=== PATIENT | female | born 1995 | race Caucasian/White ===

== ENCOUNTER 2025-06-28 10:34 | Outpatient (AMB) | payer OTHER, SELFPAY ==
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
[2025-06-28 10:45] VITALS: BP 114/82; PULSE 103; TEMP 36.9; O2SAT 99; BMI 32.5
--- OUTSIDE RECORDS SUMMARY | 2025-06-28 12:13 | XMS_ITS | Clinical Summary ---
Author Organization [facility] Address [address] [address] Phone Care Team Providers Care Tree Trimmer Helper Name Role Phone Pcp, Unknown Primary Care Provider Unavailabl e Allergies Active Allergy Reactions Criticality Noted Date Comments Sulfamethoxazole-Trimethoprim Rash Low 2024 Medications * This document contains information received from the source organization and may not represent a complete record from that organization. clonazePAM (KLONOPIN) 0.5 MG disintegrating tablet Take 1 tablet (0.5 mg total) by mouth 2 (two) times a day. 30 tablet 06/24/20 25 Active desvenlafaxine succinate (PRISTIQ) 100 MG 24 hr tablet Take 1 tablet (100 mg total) by mouth daily. 15 tablet 06/24/20 25 Active norgestrel (OPILL) Tab tabletIndications: contraception Take 1 tablet (0.075 mg total) by mouth daily. Indications: control 28 tablet 06/24/20 25 Active cetirizine (ZYRTEC) 10 MG tablet Take 1 tablet (10 mg total) by mouth daily. 30 tablet 06/25/20 25 Active clobetasol (TEMOVATE) 0.05 % cream Apply 1 Application topically 2 (two) times a day as needed (Apply to hands as needed for discomfort r/t eczema). 30 g 06/24/20 25 Active docusate sodium (COLACE) 100 MG capsule Take 1 capsule (100 mg total) by mouth 2 (two) times a day. 60 capsule 06/24/20 25 Active bisacodyl (DULCOLAX) 5 mg EC tablet Take 1 tablet (5 mg total) by mouth daily as needed for constipation. 15 tablet 06/24/20 25 Active vitamins with ferrous fumarate- folic acid 28 mg iron- 800 mcg Tab Take 1 tablet by mouth daily. 30 tablet 06/24/20 25 Active omega 4-OUM-JIR-fish oil 60-90-500 mg capsule Take 1 capsule by mouth daily. 30 capsule 06/24/20 25 Active ascorbic acid, vitamin C, (VITAMIN C) 1000 MG tablet Take 1 tablet (1,000 mg total) by mouth daily. 30 tablet 06/24/20 25 Active OLANZapine (ZYPREXA) 5 MG tablet Take 0.5 tablets (2.5 mg total) by mouth daily AND 1 tablet (5 mg total) nightly at bedtime. 23 tablet 06/24/20 25 Active desvenlafaxine succinate (PRISTIQ) 25 mg 24 hr tablet Take 25 mg by mouth 2 (two) times a day. 025 Discontin ued(Stop Taking at Discharge ) NORGESTREL-ETHINYL ESTRADIOL ORALIndications:pr egnancy contraception Take 1 tablet by mouth daily. 0.075mg Indications: control 025 Discontin ued(Stop Taking at Discharge ) clonazePAM (KLONOPIN) 0.5 MG disintegrating tablet Take 0.5 mg by mouth 2 (two) times a day. Pt taking friend's rx for 3 months, takes 0.5 mg AM and 1400 each day 025 Discontin ued(Stop Taking at Discharge ) Active Problems Problem Noted Date Diagnosed Date Posttraumatic stress disorder 06/16/2025 Resolved Problems Problem Noted Date Diagnosed Date Resolved Date Suicidal ideation 06/16/2025 06/18/2025 Social History Tobacco Use Types Packs/Day Years Used Date Smoking Tobacco: Never Passive Smoke Exposure: Never Smokeless Tobacco: Never Tobacco Cessation:Counseling Given: No Education Answer Date Recorded Are you interested in more education? Not on belia e 06/16/2025 Are you concerned about learning? Not on file 06/16/2025 No 06/16/2025 No 06/16/2025 Food Answer Date Recorded Within the past 6 months we worried whether our food would run out before we got money to buy more. Never True 06/16/2025 Within the past 6 months the food we bought just didn't last and we didn't have enough money to get more. Never True Residential Stability Answer Date Recor ded What is your housing situation today? I have bryce escobedo 06/16/2025 How many times have you moved in the past 12 mon ths? One time 06/16/2025 Paying for Meds Answer Date Recorded Do you have trouble paying for medicines? No 06/16/2025 Paying Utility Bills Answer Date Record ed Do you have trouble paying your heating or elect ricity bill? No 06/16/2025 Transportation Answer Date Recorded Has the lack of transportati on kept you from medical appointments or from getting medications? No 06/16/2025 Digital Access Answer Date Recorded No 06/16/2025 Yes 06/16/2025 Do you have reliable internet access at home? Ye s 06/16/2025 Do you have a device (e.g., phone, tablet, computer) with a working camera? Yes 06/16/2025 Intimate Partner Violence Answer Date R ecorded Are you denied basic needs s uch as food, clothing, or medical care? No 06/16/2025 In the past 12 months have y ou been in a relationship with a person who hurts, threatens, or tries to control you? No 06/16/2025 Are you denied basic needs s uch as food, clothing, or medical care? No 06/16/2025 In the past 12 months have y ou been in a relationship with a person who hurts, threatens, or tries to control you? No 06/16/2025 Comments Unknown Sex and Gender Information Value Date Recorded Sex Assigned at Female 06/16/2025 4:16 PM EST Legal Sex Female 8:55 PM EDT Gender Identity Female 06/16/2025 4:16 PM EST Sexual Orientation Straight 06/16/2025 4: 16 PM EST Last Filed Vital Signs Vital Sign Reading Time Taken Comments Blood Pressure 120/84 06/23/2025 9:50 AM EST Pulse 95 06/23/2025 9:50 AM EST Temperature 36.4 C (97.5 F) 06/23/2025 9:50 AM EST Respiratory Rate 16 06/21/2025 4:30 PM EST Oxygen Saturation 96% 06/23/2025 9:50 AM EST Inhaled Oxygen Concentration - - Weight 84.1 kg (185 lb 8 oz) 06/21/2025 7:40 PM EST Height 162.6 cm (5' 4 ) 06/16/2025 7:55 PM EST Body Mass Index 31.84 06/16/2025 7:55 PM EST Plan of Treatment Health Maintenance Due Date Last Done Comments Adult Td,Tdap Booster 1993 DEPRESSION SCREENING 2005 HEPATITIS C SCREENING 11/04/2011 HIV ONE-TIME SCREENING (18-6 5 YEARS) 11/04/2011 PAP SMEAR 2014 INFLUENZA VACCINE (#1) 2025 COVID-19 VACCINE ( - 2024-2 6 season) 2025 SMOKING STATUS SCREENING (On ce After 26 Yrs) Completed 06/16/2025 HEPATITIS A VACCINES Aged Out No long er eligible based on patient's age to complete this topic HIB VACCINES Aged Out No longer eligi ble based on patient's age to complete this topic MENINGOCOCCAL VACCINES (ACWY) Aged Out No longer eligible based on patient's age to complete this topic MENINGOCOCCAL VACCINES (B) Aged Out N o longer eligible based on patient's age to complete this topic PNEUMOCOCCAL VACCINES (0-49 years) Aged Out No longer eligible based on patient's age to complete this topic Medical Devices Not on file Procedures Procedure Name Priority Date/Time Associated Diagnosis Comments HCG, SERUM QUALITATIVE Routine 5:43 PM EST 25-OH VITAMIN D Routine 06/17/2025 8:48 AM EST HEMOGLOBIN A1C Routine 06/17/2025 8:48 AM EST LIPID PANEL Routine 06/17/2025 8:48 AM EST FOLATE Routine 06/17/2025 8:48 AM EST TSH WITH REFLEX Routine 06/17/2025 8:48 AM EST VITAMIN B12 Routine 06/17/2025 8:48 AM EST CBC AND DIFFERENTIAL STAT 06/16/2025 4:56 PM EST SALICYLATES STAT 06/16/2025 4:56 PM EST ACETAMINOPHEN LEVEL STAT 06/16/2025 4 :56 PM EST HCG, SERUM QUALITATIVE STAT 4:56 PM EST ETHANOL, BLOOD STAT 06/16/2025 4:56 PM EST LFTS (HEPATIC PANEL) STAT 06/16/2025 4:56 PM EST BASIC METABOLIC PANEL (BMP) STAT 06/16/2025 4:56 PM EST CBC AND DIFFERENTIAL STAT 06/16/2025 4:56 PM EST ECG 12-LEAD STAT 06/16/2025 4:42 PM EST TOXICOLOGY SCREEN, URINE STAT 06/16/2025 4:39 PM EST from Last 3 Months Results * Human Chorionic Gonadotropin (HCG), Qualitative, Blood (06/22/2025 5:43 PM EST) Only the most recent of2 resultswithin the time period is included. hCG Qualitative Negative Negative 6:14 PM EST [facility] Blood (Blood) Venipuncture / Unknown 06/22/2025 5:43 PM EST 06/22/2025 5:49 PM EST us Nikunj Gotti PMHNP- LAB BLOOD BKR ORD ERABLES Final Result [facility] [address] [place] [address] * Thyroid Stimulating Hormone (TSH), with Reflex (06/17/2025 8:48 AM EST) TSH 1.94 0.40 - 5.00 uIU/mL 06/17/2025 10:24 AM EST [facility] Blood (Blood) Venipuncture / Unknown 06/17/2025 8:48 AM EST 06/17/2025 8:58 AM EST us Hector Bragg MD LAB BLOOD BKR ORDERABLES F inal Result Performing Organization Address [facility] de Phone Number [address] [address] * 25-OH Vitamin D (06/17/2025 8:48 AM EST) 25-OH Vitamin D, Total 50 20 - 50 ng/mL 06/17/2025 10:19 AM [facility] Comment: Severe deficiency: <10 ng/mL Mild to moderate deficiency: 10-19 ng/mL Optimum levels: 20-50 ng/mL Increased risk of hypercalciuria: 51-80 ng/mL Possible toxicity: >80 ng/mL Blood (Blood) Venipuncture / Unknown 06/17/2025 8:48 AM EST 06/17/2025 8:54 AM EST Hector Bragg MD LAB BLOOD BKR ORDERABLES F inal Result Performing Organization Address [facility] Phone Number [address] [address] * Hemoglobin A1c (06/17/2025 8:48 AM EST) Hemoglobin A1c 5.2 4.3 - 5.6 % 06/17/2025 11:11 AM [facility] Calculated Mean Blood Glucose 103 mg/dL 06/17/2025 11:11 AM [facility] Comment:There is no establis hed normal range for the Estimated Average Glucose (EAG). However, a HbA1c of 5.6% (upper limit of normal) represents an EAG of 114 mg/dL. The diagnostic HbA1c level for diabetes is greater than or equal to 6.5%, which represents an EAG greater than or equal to 140 mg/dL. Blood (Blood) Venipuncture / Unknown 06/17/2025 8:48 AM EST 06/17/2025 8:54 AM EST Hector Bragg MD LAB BLOOD BKR ORDERABLES F inal Result Performing Organization Address City/[facility]/ZIP Co de Phone Number [address] [address] * Folate (06/17/2025 8:48 AM EST) Folic Acid 15.7 >4.7 ng/mL 06/17/2025 10:19 AM EST [facility] Blood (Blood) Venipuncture / Unknown 06/17/2025 8:48 AM EST 06/17/2025 8:54 AM EST Hector Bragg MD LAB BLOOD BKR ORDERABLES F inal Result Performing Organization Address [facility]/ZIP Co de Phone Number [address] [address] * Vitamin B12 (06/17/2025 8:48 AM EST) Vitamin B12 666 232 - 1,245 pg/mL 06/17/2025 10:19 AM EST [facility] Blood (Blood) Venipuncture / Unknown 06/17/2025 8:48 AM EST 06/17/2025 8:54 AM EST Hector Bragg MD LAB BLOOD BKR ORDERABLES F inal Result Performing Organization Address [facility]/ZIP Co de Phone Number [address] [address] * Lipid Panel (06/17/2025 8:48 AM EST) Cholesterol 169 <200 mg/dL 06/17/2025 10:24 AM EST [facility] HDL 53 >=40 mg/dL 06/17/2025 10:24 AM EST [facility] Calculated LDL 100 <130 mg/dL 06/17/2025 10:24 AM [facility] Comment:LDL is calculated us ing the Pepe-NIH equation (EVA Cardiol. 2019November 08;5(5):540-548). Non-HDL Cholesterol 116 mg/dL 06/17/2025 10:24 AM [facility] Comment:Guidelines suggest a non-HDL cholesterol goal 30 mg/dL higher than the patient-specific LDL cholesterol goal. Cardiac Risk Ratio 3.2 0.0 - 5.0 2024 10:24 AM [facility] Triglycerides 83 <=150 mg/dL 06/17/2025 10:24 AM [facility] Blood (Blood) Venipuncture / Unknown 06/17/2025 8:48 AM EST 06/17/2025 8:58 AM EST us Hector Bragg MD LAB BLOOD BKR ORDERABLES F inal Result Performing Organization Address City/[facility]/ZIP Co de Phone Number [address] [address] * Ethanol, Blood (06/16/2025 4:56 PM EST) Ethanol <10 Negative; <11 mg/dL 06/16/2025 5:26 PM [facility] Blood (Blood) Venipuncture / Unknown 06/16/2025 4:56 PM EST 06/16/2025 4:58 PM EST us Nikunj Avelar MD LAB BLOOD BKR ORDERABLES Fi nal Result [address] [address] * CBC and Differential (06/16/2025 4:56 PM EST) WBC 7.07 4.00 - 11.00 K/uL 06/16/2025 5:02 PM [facility] RBC 4.39 4.00 - 5.20 M/uL 06/16/2025 5:02 PM [facility] Hemoglobin 13.0 12.0 - 16.0 g/dL 06/16/2025 5:02 PM [facility] Hematocrit 38.8 36.0 - 46.0 % 06/16/2025 5:02 PM [facility] MCV 88.4 80.0 - 100.0 fL 06/16/2025 5:02 PM [facility] MCH 29.6 27.0 - 31.0 pg 06/16/2025 5:02 PM [facility] MCHC 33.5 32.0 - 36.0 g/dL 06/16/2025 5:02 PM [facility] MPV 9.5 8.4 - 12.0 fL 06/16/2025 5:02 PM [facility] RDW-CV 13.0 11.5 - 14.5 % 06/16/2025 5:02 PM [facility] PLT 307 150 - 450 K/uL 06/16/2025 5:02 PM [facility] Neutrophils 55.6 % 06/16/2025 5:02 PM [facility] Lymphocytes 34.5 % 06/16/2025 5:02 PM [facility] Monocytes 8.5 % 06/16/2025 5:02 PM [facility] Eosinophils 1.0 % 06/16/2025 5:02 PM [facility] Basophils 0.3 % 06/16/2025 5:02 PM [facility] Imm Grans 0.1 % 06/16/2025 5:02 PM [facility] NRBC 0.0 <=0.0 /100 WBCs 06/16/2025 5:02 PM [facility] Absolute Neutrophils 3.93 1.92 - 7.60 K/uL 06/16/2025 5:02 PM [facility] Absolute Lymphocytes 2.44 0.72 - 4.10 K/uL 06/16/2025 5:02 PM [facility] Absolute Monocytes 0.60 0.16 - 1.10 K/uL 06/16/2025 5:02 PM [facility] Absolute Eosinophils 0.07 0.00 - 0.50 K/uL 06/16/2025 5:02 PM [facility] Absolute Basophils 0.02 0.00 - 0.15 K/uL 06/16/2025 5:02 PM [facility] Absolute Imm Grans 0.01 0.00 - 0.09 K/uL 06/16/2025 5:02 PM [facility] Absolute NRBC 0.00 <=0.00 K cells/uL 06/16/2025 5:02 PM [facility] Absolute Neutrophils 3.93 1.92 - 7.60 K/uL 06/16/2025 5:02 PM [facility] Comment:Automated cell count . Manual ANC may differ if performed. Diff Type Auto 06/16/2025 5:02 PM [facility] Blood (Blood) Venipuncture / Unknown 06/16/2025 4:56 PM EST 06/16/2025 4:58 PM EST us Nikunj Avelar MD LAB BLOOD BKR ORDERABLES Fi nal Result [address] [address] * Hepatic Panel (LFTs) (06/16/2025 4:56 PM EST) AST 23 <33 U/L 06/16/2025 5:26 PM [facility] ALT 23 <34 U/L 06/16/2025 5:26 PM [facility] Alkaline Phosphatase 73 40 - 130 U/L 06/16/2025 5:26 PM [facility] Bilirubin, Total 0.3 0.0 - 1.2 mg/dL 06/16/2025 5:26 PM [facility] Bilirubin, Direct 0.1 0.0 - 0.3 mg/dL 06/16/2025 5:26 PM [facility] Total Protein 7.8 6.4 - 8.3 g/dL 06/16/2025 5:26 PM [facility] Albumin 5.0 3.5 - 5.2 g/dL 06/16/2025 5:26 PM [facility] Globulin 2.8 1.9 - 4.1 g/dL 06/16/2025 5:26 PM [facility] Blood (Blood) Venipuncture / Unknown 06/16/2025 4:56 PM EST 06/16/2025 4:58 PM EST us Nikunj Avelar MD LAB BLOOD BKR ORDERABLES Fi nal Result Performing Organization Address City/[facility]/ZIP Co de Phone Number [address] [address] * Acetaminophen Level (06/16/2025 4:56 PM EST) Acetaminophen <5.0 <=25.0 ug/mL 06/16/2025 5:46 PM EST [facility] Blood (Blood) Venipuncture / Unknown 06/16/2025 4:56 PM EST 06/16/2025 4:58 PM EST us Nikunj Avelar MD LAB BLOOD BKR ORDERABLES Fi nal Result Performing Organization Address [facility] Co de Phone Number [address] [address] * Salicylates (06/16/2025 4:56 PM EST) Salicylates <0.3 10.0 - 25.0 mg/dL 06/16/2025 5:44 PM EST [facility] Blood (Blood) Venipuncture / Unknown 06/16/2025 4:56 PM EST 06/16/2025 4:58 PM EST us Nikunj Avelar MD LAB BLOOD BKR ORDERABLES Fi nal Result Performing Organization Address [facility] Co de Phone Number [address] [address] * Basic Metabolic Panel (BMP) (06/16/2025 4:56 PM EST) Sodium 137 136 - 145 mmol/L 06/16/2025 5:26 PM EST [facility] Potassium 4.4 3.4 - 5.1 mmol/L 06/16/2025 5:26 PM [facility] Chloride 99 98 - 107 mmol/L 06/16/2025 5:26 PM [facility] CO2 26 20 - 31 mmol/L 06/16/2025 5:26 PM [facility] BUN 13 6 - 23 mg/dL 06/16/2025 5:26 PM [facility] Creatinine 0.60 0.50 - 1.00 mg/dL 06/16/2025 5:26 PM [facility] Glucose 91 70 - 99 mg/dL 06/16/2025 5:26 PM [facility] Calcium 9.9 8.5 - 10.5 mg/dL 06/16/2025 5:26 PM [facility] eGFR 123 >59 mL/min/1.7 3m2 06/16/2025 5:26 PM [facility] Comment:Estimated glomerular filtration rate calculated using the CKD-EPI refit equation. Anion Gap 12 3 - 17 mmol/L 06/16/2025 5:26 PM [facility] Blood (Blood) Venipuncture / Unknown 06/16/2025 4:56 PM EST 06/16/2025 4:58 PM EST us Nikunj Avelar MD LAB BLOOD BKR ORDERABLES Fi nal Result [address] [address] * ECG 12-LEAD (06/16/2025 4:42 PM EST) Ventricular Rate EKG/MIN 90 BPM [facility] Atrial Rate 90 BPM [facility] NM Interval 124 ms [facility] QRS Duration 84 ms [facility] QT Interval 346 ms [facility] QTC Interval 423 ms [facility] P [place] 42 degrees [facility] R Wave [place] 0 degrees [facility] T Wave [place] 23 degrees [facility] 06/16/2025 4:42 PM EST 06/18/2025 12:53 PM EST Narrative [facility] - 06/18/2025 12:53 PM EST Normal sinus rhythm Possible Left atrial enlargement T wave abnormality, consider anterior ischemia Abnormal ECG No previous ECGs available Confirmed by Juan Pablo Miranda ([id number]) on 06/18/2025 12:53:32 PM Nikunj Avelar MD ECG ORDERABLES Final Resul t [facility] * Toxicology Screen, Urine (06/16/2025 4:39 PM EST) [facility] Amphetamines, Urine Negative Negative 06/16/2025 5:14 PM EST [facility] Benzodiazepine , Urine Negative Negative 06/16/2025 5:14 PM EST [facility] Cocaine Metabolite, Urine Negative Negative 06/16/2025 5:14 PM [facility] Opiates, Urine Negative Negative 06/16/2025 5:14 PM EST [facility] Oxycodone, Urine Negative Negative 06/16/2025 5:14 PM [facility] Fentanyl, Urine Negative Negative 06/16/2025 5:14 PM [facility] Creatinine, Urine 100 20 - 300 mg/dL 06/16/2025 5:14 PM [facility] Urine (Urine, Voided) Non-Blood Collection / Unknown 06/16/2025 4:39 PM EST 06/16/2025 4:41 PM EST [facility] - 06/16/2025 5:14 PM EST This screening test was performed by immunoassay methodology, which may occasionally yield false-negative or false-positive results. Confirmatory testing can be requested if a definitive result is needed. Results are to be used only for medical (ie, treatment) purposes. Unconfirmed screening results must not be used for non-medical purposes (eg, employment testing). Nikunj Avelar MD LAB URINE ORDERABLES Final Result [facility] [address] [place] [address] from Last 3 Months Insurance [employer] [id number] [place] [id number] [place] [address] ALLIANCE ACO [facility] [employer] ACO [facility] Advance Directives For more information, please contact: [phone] (9AM - 5PM [facility], Tuesday-Tuesday) * Full Code (Latest Code Status on File) Date Activated Date Inactivated Comments 06/17/2025 9:24 AM Question Answer Comments Code Status Confirmed With: Patient Care Teams Tree Trimmer Helper Relationship Specialty Start Date End Date Pcp, Unknown PCP - General 06/16/25 Additional Source Comments The information contained in this document represents components of the legal health record. It is not the complete legal health record.[facility]
== END 2025-06-28 11:10 | disposition home or self-care (01) ==
LOC: HO.HMCHD 10:34
PROVIDERS: PCP Student in an Organized Health Care Education/Training Program; Visit Provider Student in an Organized Health Care Education/Training Program
DX: Z00.00 Encounter for general adult medical examination without abnormal findings (principal); F43.10 Post-traumatic stress disorder, unspecified; K59.00 Constipation, unspecified; J30.9 Allergic rhinitis, unspecified; Z23 Encounter for immunization

== ENCOUNTER 2025-06-28 10:34 | Outpatient (REF) | payer OTHER, SELFPAY ==
[2025-06-28 13:15] LABS: MANUAL DIFF FLAG NO
[2025-06-28 13:19] LABS: Hematocrit 38.0 % (37.0-47.0); Hemoglobin 12.8 g/dl (12.0-16.0); Imm Gran Abs Auto 0.01 X10*3/uL (0.00-0.03); Imm Gran Pct Auto 0.2 % (0.0-0.4); Lymphocytes Absolute Auto 2.0 X10*3/uL (1.2-4.9); Mean Corpuscular HGB Conc 33.7 g/dl (31.0-35.0); Mean Corpuscular Hemoglobin 29.3 pg (27.0-33.0); Mean Corpuscular Volume 87.0 fL (80.0-98.0); NRBC Abs Auto 0.000 X10*3/uL (0.0-0.012); NRBC Pct Auto 0.0 /100WBC (0.0-0.2); Platelet Count 303 X10*3/uL (160-400); Red Blood Count 4.37 X10*6/uL (4.20-5.50); White Blood Count 6.5 X10*3/uL (4.8-10.8)
[2025-06-28 13:58] LABS: Anion Gap 11 (12-20)
[2025-06-28 14:03] LABS: Alanine Aminotransferase 24 U/L (0-31); Albumin Level 4.5 g/dL (3.5-5.0); Alkaline Phosphatase 59 U/L (39-117); Aspartate Amino Transferase 27 U/L (5-31); Blood Urea Nitrogen 16 mg/dL (9-16); Calcium 9.3 mg/dL (8.4-10.2); Carbon Dioxide 25 mmol/L (22-29); Chloride 109 mmol/L (96-108); Cholesterol 138 mg/dL (<200); Estimated Glomerular Filt Rate > 60; HDL Cholesterol 44 mg/dL (>40); Potassium 4.2 mmol/L (3.3-5.1); Sodium 141 mmol/L (135-145); Total Protein 6.9 g/dL (6.5-8.0); Triglycerides 69 mg/dL (<150)
[2025-07-01 03:56] LABS: Syphilis Screen Nonreactive (Nonreactive)
[2025-07-01 04:34] LABS: HBS Num1 20.59 mIU/mL (0-7.99); HBc Num1 0.07 S/CO (0.00-0.79); HBsAGNum1 0.41 S/CO (0.00-0.99); HIV Num 1 0.05 S/CO (0.00-0.99); Hepatitis A Antibody IgM 0.19 Index (0-0.79); Hepatitis B Surface Antigen Negative (Negative); ~HepC Num1 0.08 S/CO (0.00-0.79); ~Hepatitis A Antibody IgM Nonreactive (Nonreactive); ~Hepatitis B Surface Antibody REACTIVE (Nonreactive); ~Hepatitis C Antibody Nonreactive (Nonreactive)
== END 2025-06-28 10:35 | disposition home or self-care (01) ==
LOC: HO.10HDL 10:34
PROVIDERS: PCP Student in an Organized Health Care Education/Training Program; Visit Provider Student in an Organized Health Care Education/Training Program
DX: Z00.00 Encounter for general adult medical examination without abnormal findings (principal); Z23 Encounter for immunization; F43.10 Post-traumatic stress disorder, unspecified; K59.00 Constipation, unspecified; J30.9 Allergic rhinitis, unspecified
CPT/HCPCS: 36415; 80053; 80061; 82043; 82306; 82570; 83036; 84443; 85025; 86704; 86706; 86709; 86780; 86803; 87340; 87389; 90471; 90656; 99202; 99385